=== PATIENT | female | born 2000 | race Caucasian/White ===

== ENCOUNTER → 2020-03-06 | Outpatient (CLI) | payer OTHER ==
[2020-03-07 10:14] LABS: URINE PROTEIN 8.2 mg/dL (<12)
[2020-03-07 10:19] LABS: 24 HOUR URINE PROTEIN RESULT 113 mg/day (42-225)
== END ==
LOC: OD 16:46
PROVIDERS: ATTEND Advanced Practice Midwife
DX: O13.9 Gestational [pregnancy-induced] hypertension without significant proteinuria, unspecified trimester (principal)
CPT/HCPCS: 84156

== ENCOUNTER 2020-10-27 09:45 | Outpatient (CLI) | payer OTHER ==
[2020-10-27 10:47] LABS: APPEARANCE,URINE SLIGHTLY-CLOUDY; BILIRUBIN,URINE NEGATIVE (NEGATIVE); COLOR,URINE YELLOW; GLUCOSE, URINE NEGATIVE (NEGATIVE); KETONES,URINE NEGATIVE (NEGATIVE); LEUKOCYTE ESTERASE,URINE NEGATIVE (NEGATIVE); NITRITE,URINE NEGATIVE (NEGATIVE); PROTEIN,URINE NEGATIVE (NEGATIVE); URINE SPECIFIC GRAVITY 1.018; UROBILINOGEN,URINE NEGATIVE mg/dL (<2.0)
--- NOTE | 2020-10-27 11:52 | Non Stress Test Report ---
Non Stress Test Datetime Report Generated by CPN: 10/27/2020 11:52 DEMOGRAPHIC Test Number: 2 EGA NST: 41.0 INDICATION Indication for Study (NST) Other: R/O labor Indication for Study (NST) Other: R/O labor VITAL SIGNS Temperature - NST: 97.7 Pulse - NST: 93 RESP - NST: 18 NBPSYS NST: 116 NBPDIA NST: 76 MONITORING Monitor Explained: Monitor Explained; Test Explained; Patient Verbalized Understanding Monitor Explained: Monitor Explained; Test Explained; Patient Verbalized Understanding Time on Monitor: 10/27/2020 10:15 Time on Monitor: 10/27/2020 10:15 Time off Monitor: 10/27/2020 11:14 Time off Monitor: 10/27/2020 11:14 NST Duration: 59 NST Duration: 59 NST INTERVENTIONS NST Interventions: PO Hydration NST Interventions: PO Hydration Physician Notified NST: A. Martínez, CNM BABY A: [id number] BABY A Movement : Present Contraction Frequency : 4-9 FHR Baseline : 125 Accelerations : 15X15 Decelerations : None Variability : Moderate 6-25bpm Variability : Moderate 6-25bpm NST Review: Meets Criteria for Reactive NST NST Review and Verified By : Tutu Gallardo RN NSKeagan Results: Reactive NST REPORT Report Trigger: Send Report
[2020-10-27 14:07] LABS: URINE AMPHETAMINES SCREEN NEGATIVE; URINE BARBITURATES SCREEN NEGATIVE; URINE BENZODIAZEPINES SCREEN NEGATIVE; URINE COCAINE SCREEN NEGATIVE; URINE MARIJUANA (THC) SCREEN NEGATIVE; URINE METHADONE SCREEN NEGATIVE; URINE PHENCYCLIDINE SCREEN NEGATIVE
== END 2020-10-27 11:41 | disposition home or self-care (01) ==
LOC: LC 09:45
PROVIDERS: ATTEND Obstetrics & Gynecology Gynecology
DX: O47.1 False labor at or after 37 completed weeks of gestation (principal); O48.0 Post-term pregnancy; Z3A.41 41 weeks gestation of pregnancy
CPT/HCPCS: 59025; 80307; 81005

== ENCOUNTER 2020-10-27 15:22 | Outpatient (CLI) | payer OTHER | END 2020-10-27 16:59 | disposition home or self-care (01) | LOC: LC 15:22 | PROVIDERS: ATTEND Obstetrics & Gynecology Gynecology | DX: O47.1 False labor at or after 37 completed weeks of gestation (principal); O48.0 Post-term pregnancy; Z3A.41 41 weeks gestation of pregnancy | CPT/HCPCS: 59025 ==

== ENCOUNTER 2020-10-28 06:48 | Outpatient (CLI) | payer OTHER ==
--- NOTE | 2020-10-28 06:52 | Non Stress Test Report ---
Non Stress Test Datetime Report Generated by CPN: 10/28/2020 06:52 DEMOGRAPHIC EGA NST: 41.0 INDICATION Indication for Study (NST) Other: R/O labor VITAL SIGNS Temperature - NST: 98.4 Pulse - NST: 92 RESP - NST: 18 NBPSYS NST: 124 NBPDIA NST: 84 MONITORING Monitor Explained: Monitor Explained; Test Explained; Patient Verbalized Understanding Time on Monitor: 10/27/2020 15:39 Time off Monitor: 10/27/2020 16:15 NST Duration: 36 NST INTERVENTIONS NST Interventions: None BABY A: [id number] BABY A Movement : Present Contraction Frequency : 5-7 FHR Baseline : 115 Accelerations : 15X15 Decelerations : None Variability : Moderate 6-25bpm NST Review: Meets Criteria for Reactive NST NST Review and Verified By : Aryan Parikh RN NST Results: Reactive NST REPORT Report Trigger: Send Report
[2020-10-28 07:38] LABS: APPEARANCE,URINE SLIGHTLY-CLOUDY; BILIRUBIN,URINE NEGATIVE (NEGATIVE); COLOR,URINE YELLOW; GLUCOSE, URINE NEGATIVE (NEGATIVE); KETONES,URINE NEGATIVE (NEGATIVE); LEUKOCYTE ESTERASE,URINE NEGATIVE (NEGATIVE); NITRITE,URINE NEGATIVE (NEGATIVE); PROTEIN,URINE NEGATIVE (NEGATIVE); URINE SPECIFIC GRAVITY 1.011; UROBILINOGEN,URINE NEGATIVE mg/dL (<2.0)
[2020-10-28 07:59] LABS: URINE AMPHETAMINES SCREEN NEGATIVE; URINE BARBITURATES SCREEN NEGATIVE; URINE BENZODIAZEPINES SCREEN NEGATIVE; URINE COCAINE SCREEN NEGATIVE; URINE MARIJUANA (THC) SCREEN NEGATIVE; URINE METHADONE SCREEN NEGATIVE; URINE PHENCYCLIDINE SCREEN NEGATIVE
[2020-10-28] MEDS ORDERED: RINGERS SOLUTION,LACTATED 1,000 ML IV PRN (08:31)
[2020-10-28] MEDS ORDERED: PROMETHAZINE HCL INJ 25 MG/1 ML VIAL IV ONE (08:32)
[2020-10-28] MEDS ORDERED: NALBUPHINE HCL INJ 10 MG/1 ML AMPULE INJ ONE (08:32)
[2020-10-28] MEDS ORDERED: NALBUPHINE HCL INJ 10 MG/1 ML AMPULE ONE (08:35)
[2020-10-28] MEDS ORDERED: PROMETHAZINE HCL INJ 25 MG/1 ML VIAL ONE (08:35)
--- NOTE | 2020-10-28 13:37 | Non Stress Test Report ---
Non Stress Test Datetime Report Generated by CPN: 10/28/2020 13:37 DEMOGRAPHIC Test Number: 3 EGA NST: 41.1 INDICATION Indication for Study (NST) Other: 41 wks not in labor VITAL SIGNS Temperature - NST: 98.4 Pulse - NST: 87 RESP - NST: 18 NBPSYS NST: 116 NBPDIA NST: 74 MONITORING Monitor Explained: Monitor Explained; Test Explained; Patient Verbalized Understanding Time on Monitor: 10/28/2020 10:50 Time off Monitor: 10/28/2020 11:30 NST Duration: 40 NST INTERVENTIONS NST Interventions: PO Hydration Physician Notified NST: Dr Joaquin BABY A Movement : Present Contraction Frequency : 5-8 FHR Baseline : 110 Accelerations : 15X15 Decelerations : None Variability : Moderate 6-25bpm NST Review: Meets Criteria for Reactive NST NST Review and Verified By : Tutu Gallardo RN NSKeagan Results: Reactive NST REPORT Report Trigger: Send Report
== END 2020-10-28 13:25 | disposition home or self-care (01) ==
LOC: LC 06:48
PROVIDERS: ATTEND Obstetrics & Gynecology
DX: O48.0 Post-term pregnancy (principal); Z3A.41 41 weeks gestation of pregnancy
CPT/HCPCS: 59025; 81005; 80307; J2300; J2550

== ENCOUNTER 2020-10-29 14:28 | Inpatient (IN) | payer OTHER ==
[2020-10-29 15:17] LABS: APPEARANCE,URINE SLIGHTLY-CLOUDY; BILIRUBIN,URINE NEGATIVE (NEGATIVE); COLOR,URINE YELLOW; GLUCOSE, URINE NEGATIVE (NEGATIVE); KETONES,URINE 80 mg/dL (NEGATIVE); LEUKOCYTE ESTERASE,URINE TRACE (NEGATIVE); NITRITE,URINE NEGATIVE (NEGATIVE); PROTEIN,URINE 30 mg/dL (NEGATIVE); UROBILINOGEN,URINE NEGATIVE mg/dL (<2.0)
[2020-10-29 15:37] LABS: URINE AMPHETAMINES SCREEN NEGATIVE; URINE BARBITURATES SCREEN NEGATIVE; URINE BENZODIAZEPINES SCREEN NEGATIVE; URINE COCAINE SCREEN NEGATIVE; URINE MARIJUANA (THC) SCREEN NEGATIVE; URINE METHADONE SCREEN NEGATIVE; URINE PHENCYCLIDINE SCREEN NEGATIVE
[2020-10-29] MEDS ORDERED: RINGERS SOLUTION,LACTATED 1,000 ML IV PRN (18:05)
[2020-10-29] MEDS ORDERED: RINGERS SOLUTION,LACTATED 1,000 ML IV ONE (18:05)
[2020-10-29 19:05] LABS: ABSOLUTE LYMPHOCYTES (AUTO) 1.4 10^3/uL (0.5-4.7); ABSOLUTE MONOCYTES (AUTO) 0.8 10^3/uL (0.1-1.4); ABSOLUTE NEUT (AUTO) 8.8 10^3/uL (1.7-8.2); BASOPHILS % (AUTO) 0.1 % (0-2); EOSINOPHILS % (AUTO) 0.2 % (0-6); HEMATOCRIT 34.3 % (36.0-47.0); HEMOGLOBIN 11.7 g/dL (12.0-15.5); MEAN CORPUSCULAR HEMOGLOBIN 30.7 pg (27.0-33.4); MEAN CORPUSCULAR HGB CONC 34.1 g/dL (32.0-36.0); MEAN CORPUSCULAR VOLUME 90 fl (80-97); MONOCYTES % (AUTO) 7.6 % (3-13); PLATELET COUNT 220 10^3/uL (150-450); RED BLOOD COUNT 3.81 10^6/uL (3.72-5.28); RED CELL DISTRIBUTION WIDTH 15.1 % (11.5-14.0); SEGMENTED NEUTROPHILS % (AUTO) 79.1 % (42-78); TOTAL CELLS COUNTED % (AUTO) 100 %; WHITE BLOOD COUNT 11.1 10^3/uL (4.0-10.5)
[2020-10-29] MEDS ORDERED: EPHEDRINE SULFATE INJ 50 MG/1 ML AMPULE ONE (19:34)
[2020-10-29] MEDS ORDERED: ROPIVACAINE HCL 0.2% INJ/PF (2 MG/ML) 20 ML SDV ONE (19:34)
[2020-10-29] MEDS ORDERED: FENTANYL/BUPIVACAINE/NS/PF 300 MCG/150 ML RTUINJ EPI ONE (19:34)
[2020-10-29] MEDS ORDERED: OXYTOCIN 10 UNIT/ML VIAL ONE (22:51)
[2020-10-29] MEDS ORDERED: LIDOCAINE 1% INJ-PF (10 MG/ML) 30 ML SDV ONE (22:51)
[2020-10-29] MEDS ORDERED: MISOPROSTOL 0.2 MG TABLET ONE (22:51)
[2020-10-29] MEDS ORDERED: OXYTOCIN/0.9 % SODIUM CHLORIDE 30 UNIT/500 ML RTUINJ ONE (22:51)
[2020-10-29] MEDS ORDERED: OXYTOCIN/0.9 % SODIUM CHLORIDE 30 UNIT/500 ML RTUINJ IV PRN (22:55)
[2020-10-30] MEDS ORDERED: MAGNESIUM HYDROXIDE SUSP 30 ML UDCUP PO PRN (06:31)
[2020-10-30] MEDS ORDERED: ZOLPIDEM TARTRATE 5 MG TABLET PO PRN (06:31)
[2020-10-30] MEDS ORDERED: PSEUDOEPHEDRINE HCL 30 MG TABLET PO PRN (06:31)
[2020-10-30] MEDS ORDERED: PROMETHAZINE HCL INJ 25 MG/1 ML VIAL IV PRN (06:31)
[2020-10-30] MEDS ORDERED: ACETAMINOPHEN WITH CODEINE #3 TABLET PO PRN (06:31)
[2020-10-30] MEDS ORDERED: DIPH/PERTUSS(ACELL)/TETANUS VAC/PF 0.5 ML SYR (>=10YO) IM PRN (06:31)
[2020-10-30] MEDS ORDERED: GLYCERIN/WITCH HAZEL LEAF 1 EACH MED..WIPE TP PRN (06:31)
[2020-10-30] MEDS ORDERED: DIPHENHYDRAMINE HCL 25 MG CAPSULE PO PRN (06:31)
[2020-10-30] MEDS ORDERED: NA PHOS,M-B/NA PHOS,DI-BA (ADULT) 133 ML ENEMA PR PRN (06:31)
[2020-10-30] MEDS ORDERED: BENZOCAINE/MENTHOL AEROSOL SPRAY 56 ML TOP PRN (06:31)
[2020-10-30] MEDS ORDERED: DIBUCAINE 1% OINTMENT 28 GM TP PRN (06:31)
[2020-10-30] MEDS ORDERED: OXYTOCIN/0.9 % SODIUM CHLORIDE 30 UNIT/500 ML RTUINJ IV PRN (06:31)
[2020-10-30] MEDS ORDERED: PROMETHAZINE HCL 25 MG TABLET PO PRN (06:31)
[2020-10-30] MEDS ORDERED: MEASLES,MUMPS&RUBELLA VACC/PF 0.5 ML VIAL SUBCUT PRN (06:31)
[2020-10-30] MEDS ORDERED: ACETAMINOPHEN 325 MG TABLET PO PRN (06:31)
[2020-10-30] MEDS ORDERED: ACETAMINOPHEN 650 MG SUPP.RECT PR PRN (06:31)
[2020-10-30] MEDS ORDERED: PROMETHAZINE HCL 25 MG SUPP.RECT PR PRN (06:31)
--- NOTE | 2020-10-30 06:38 | Admission Physical ---
Datetime Report Generated by CPN: 10/30/2020 06:38 CURRENT ADMISSION Hx Assessment: The History has been Reviewed and is Current Chief Complaint: Uterine Contractions Chief Complaint Other: Contractions worsening and getting closer over last 24-48 hours Admit Impression : Term, Intrauterine ; Active Labor; Admit Plan: Admit to Unit; Initiate Protocol ALLERGIES Medication Allergies: No Medication Allergies: No Known Allergies (10/29/2020) Latex: No Latex Allergies OBSTETRICAL HISTORY EDC: 10/20/2020 00:00 : 3 Para: 1 Term: 1 : 0 SAB: 1 IAB: 0 Ectopic: 0 Livin Cesareans: 1 VBACs: 0 Multiple Births: 0 Gestational Diabetes: No Rh Sensitization: No Incompetent Cervix: No VIKA: No Infertility: No ART Treatment: No Uterine Anomaly: No IUGR: No Hx Previous C/S: Yes Macrosomia: No Hx Loss/Stillborn: No PIH: No Hx : No Placenta Previa/Abruption: No Depression/PP Depression: No PTL/PROM: No Post Hemorrhage: No Current Procedures: Ultrasound; NST Obstetrical History Comments: G1- SAB @ 7weeks 02/16/2018 G2- Primary C/S d/t preeclampsia and breech @37 weeks, male G3- Current, desires TOLAC SEE RECORDS Alcohol: No Marijuana : No Cocaine: No Other Illicit Drugs: No Cigarettes: Never Smoker. [id number] MEDICAL HISTORY Diabetes: No Blood Transfusion: No Pulmonary Disease (Asthma, TB): No Breast Disease: No Hypertension: No Project Management Analyst Surgery: No Heart Disease: No Hosp/Surgery: Yes Autoimmune Disorder: No Anesthetic Complications: No Kidney Disease: No Abnormal Pap Smear: No Neuro/Epilepsy: No Psychiatric Disorders: No Other Medical Diseases: No Hepatitis/Liver Disease: No Significant Family History: No Varicosities/Phlebitis: No Trauma/Violence : No Thyroid Dysfunction: No Medical History Comments: hx of hospital for last INFECTIOUS HISTORY Gonorrhea: No Genital Herpes: No Chlamydia: No Tuberculosis: No Syphilis: No Hepatitis: No HIV/AIDS Exposure: No Rash or Viral Illness: No HPV: No PHYSICAL EXAM General: Normal HEENT: Normal Neurologic: Normal Thyroid: Normal Heart: Normal Lungs: Normal Breast: Normal Back: Normal Abdomen: Normal Genitourinary Exam: Normal Extremities: Normal DTRs: Normal Pelvic Type: Adequate Vital Signs: Reviewed VAGINAL EXAM Dilatation: 2 Effacement: 80 Station: -2 Contraction Comments: regular MEMBRANES Pooling: Positive Membranes: Ruptured Amniotic Fluid Color: Clear FETUS A EGA: 41.3 Monitoring: External US FHR- Baseline: 135 Variability: Moderate 6-25bpm Accelerations: 15X15 Decelerations: None FHR Category: Category I Presentation: Vertex Admit Comment: at 41.3 wks EGA in active labor. History of prior CS for breech but desires TOLAC -Admit to LDR -NPO and IVFS: LR at 125 cc/hr after 1 liter of LR bolus -CEFM and toco -GBS negative -Desires epidural -Plan for PLANS FOR LABOR AND DELIVERY Labor and Delivery: None Pain Management: Epidural Feeding Preference: Breast Benefit of Breast Feed Discussed: Yes Circumcision: Yes INFORMED CONSENT Informed Consent Obtained: Vaginal Delivery; Section Delivery; Vaginal After ; Risks, Benefits and Alternatives Discussed Signature: with User ID: Petros : with User ID: [email or web address]
[2020-10-30] MEDS ORDERED: BUTALB/ACETAMINOPHEN/CAFFEINE 1 TAB EACH PO ONE (07:18)
[2020-10-30] MEDS ORDERED: BUTALB/ACETAMINOPHEN/CAFFEINE 1 TAB EACH ONE (07:27)
[2020-10-30] MEDS: IBUPROFEN 800 MG TABLET PO SCH ×3 (09:36→22:01)
[2020-10-30] MEDS: FAMOTIDINE 20 MG TABLET PO SCH ×2 (10:04→22:00)
[2020-10-30] MEDS: FERROUS SULFATE 325 MG TABLET PO SCH ×2 (10:04→17:23)
[2020-10-30] MEDS: PRENATAL VITAMIN W DHA CAPSULE PO SCH (10:04)
[2020-10-30] MEDS: SENNOSIDES/DOCUSATE 8.6-50 MG 1 EACH TABLET PO SCH (10:04)
[2020-10-30] MEDS: DOCUSATE SODIUM 100 MG CAPSULE PO SCH ×2 (10:04→17:23)
[2020-10-30] MEDS: ACETAMINOPHEN WITH CODEINE #3 TABLET PO PRN (15:20)
[2020-10-31] MEDS: IBUPROFEN 800 MG TABLET PO SCH ×3 (05:45→21:26)
[2020-10-31 07:15] LABS: HEMATOCRIT 29.1 % (36.0-47.0); HEMOGLOBIN 9.9 g/dL (12.0-15.5); MEAN CORPUSCULAR HEMOGLOBIN 31.1 pg (27.0-33.4); MEAN CORPUSCULAR HGB CONC 34.1 g/dL (32.0-36.0); MEAN CORPUSCULAR VOLUME 91 fl (80-97); PLATELET COUNT 181 10^3/uL (150-450); RED CELL DISTRIBUTION WIDTH 15.3 % (11.5-14.0); WHITE BLOOD COUNT 10.6 10^3/uL (4.0-10.5)
[2020-10-31] MEDS: PRENATAL VITAMIN W DHA CAPSULE PO SCH (11:11)
[2020-10-31] MEDS: FAMOTIDINE 20 MG TABLET PO SCH ×2 (11:11→21:27)
[2020-10-31] MEDS: ACETAMINOPHEN WITH CODEINE #3 TABLET PO PRN (11:11)
[2020-10-31] MEDS: SENNOSIDES/DOCUSATE 8.6-50 MG 1 EACH TABLET PO SCH (11:11)
[2020-10-31] MEDS: FERROUS SULFATE 325 MG TABLET PO SCH ×2 (11:11→17:42)
[2020-10-31] MEDS: DOCUSATE SODIUM 100 MG CAPSULE PO SCH ×2 (11:11→17:42)
[2020-10-31] MEDS ORDERED: BUTALB/ACETAMINOPHEN/CAFFEINE 1 TAB EACH PO PRN (15:12)
--- NOTE | 2020-10-31 15:54 | PDOC PROGRESS REPORT ---
Subjective-OB Progress Note for:: 10/31/20 Subjective: reports bleeding slowing, pain controlled with current meds. denies needs Physical Exam (OB) Vital Signs: Temp Pulse Resp BP Pulse Ox 98.2 F 98 17 123/79 100 10/31/20 08:33 10/31/20 08:10 10/31/20 08:10 10/31/20 08:10 10/31/20 08:10 Intake & Output 10/30/20 10/31/20 11/01/20 06:59 06:59 06:59 Intake Total 640 Balance 640 Weight 89.9 kg - Maternal Morbidity 59. Maternal Morbidity (serious complications experinced by the mother associated with labor and delivery: None of the above - Abdomen Description: Tender, Soft Hernia Present: No Fundal Description: Firm, Midline Fundal Height: u/u - u/2 - Abdominal Distension: No distension - Extremities Lower extremities: Luly's sign - neg Calf: Normal, Nontender Objective-Diagnostic Laboratory: 10/31/20 06:27 10/31/20 06:27 WBC 10.6 H RBC 3.20 L Hgb 9.9 L Hct 29.1 L MCV 91 MCH 31.1 MCHC 34.1 RDW 15.3 H Plt Count 181 Assessment and Plan(PN) - Assessment and Plan (1) Obstetrical laceration, third degree Is this a current diagnosis for this admission?: Yes (2) (vaginal after ) Is this a current diagnosis for this admission?: Yes - Time Spent with Patient Time with patient: Less than 15 minutes - Disposition Anticipated Discharge Disposition: Home, Self Care Anticipated Discharge Timeframe: within 24 hours
[2020-11-01] MEDS: IBUPROFEN 800 MG TABLET PO SCH (06:52)
[2020-11-01] MEDS: PRENATAL VITAMIN W DHA CAPSULE PO SCH (09:12)
[2020-11-01] MEDS: FAMOTIDINE 20 MG TABLET PO SCH (09:13)
[2020-11-01] MEDS: FERROUS SULFATE 325 MG TABLET PO SCH (09:13)
[2020-11-01] MEDS: DOCUSATE SODIUM 100 MG CAPSULE PO SCH (09:13)
[2020-11-01] MEDS: SENNOSIDES/DOCUSATE 8.6-50 MG 1 EACH TABLET PO SCH (09:13)
--- NOTE | 2020-11-01 11:52 | PDOC DISCHARGE SUMMARY ---
Impression - Admit/DC Date/PCP Admission Date/Primary Care Provider: 10/29/20 18:03 LIANNA DALE MD Discharge Date: 11/01/20 - Discharge Diagnosis (1) Obstetrical laceration, third degree Is this a current diagnosis for this admission?: Yes (2) (vaginal after ) Is this a current diagnosis for this admission?: Yes - Additional Information Discharge Diet: Regular Discharge Activity: Balance Activity w/Rest, Pelvic Rest Referrals: LIANNA DALE MD [Primary Care Provider] - Prescriptions: Docusate Sodium [Colace 100 mg Capsule] 100 mg PO TID #90 capsule Butalbit/Acetamin/Caff/Codeine [Fioricet-Cod 31-461-41-30 Cap] 1 cap PO Q6 PRN 10 Days #40 cap PRN Reason: Ibuprofen [Motrin 800 mg Tablet] 800 mg PO Q8HP PRN #90 tablet PRN Reason: Home Medications: Butalbit/Acetamin/Caff/Codeine [Fioricet-Cod 42-198-27-30 Cap] 1 cap PO Q6 PRN 10 Days #40 cap 11/01/20 Docusate Sodium [Colace 100 mg Capsule] 100 mg PO TID #90 capsule 11/01/20 Ibuprofen [Motrin 800 mg Tablet] 800 mg PO Q8HP PRN #90 tablet 11/01/20 Hospital Course 59. Maternal Morbidity (serious complications experinced by the mother associated with labor and delivery: None of the above Results Laboratory Results: WBC 10.6 10^3/uL (4.0-10.5) H 10/31/20 06:27 RBC 3.20 10^6/uL (3.72-5.28) L 10/31/20 06:27 Hgb 9.9 g/dL (12.0-15.5) L 10/31/20 06:27 Hct 29.1 % (36.0-47.0) L 10/31/20 06:27 MCV 91 fl (80-97) 10/31/20 06:27 MCH 31.1 pg (27.0-33.4) 10/31/20 06:27 MCHC 34.1 g/dL (32.0-36.0) 10/31/20 06:27 RDW 15.3 % (11.5-14.0) H 10/31/20 06:27 Plt Count 181 10^3/uL (150-450) 10/31/20 06:27 Lymph % (Auto) 13.0 % (13-45) 10/29/20 18:51 [place] % (Auto) 7.6 % (3-13) 10/29/20 18:51 Eos % (Auto) 0.2 % (0-6) 10/29/20 18:51 Baso % (Auto) 0.1 % (0-2) 10/29/20 18:51 Absolute Neuts (auto) 8.8 10^3/uL (1.7-8.2) H 10/29/20 18:51 Absolute Lymphs (auto) 1.4 10^3/uL (0.5-4.7) 10/29/20 18:51 Absolute Monos (auto) 0.8 10^3/uL (0.1-1.4) 10/29/20 18:51 Absolute Eos (auto) 0.0 10^3/uL (0.0-0.6) 10/29/20 18:51 Absolute Basos (auto) 0.0 10^3/uL (0.0-0.2) 10/29/20 18:51 Seg Neutrophils % 79.1 % (42-78) H 10/29/20 18:51 Urine Color YELLOW 10/29/20 14:41 Urine Appearance SLIGHTLY-CLOUDY 10/29/20 14:41 Urine pH 6.0 (5.0-9.0) 10/29/20 14:41 Ur Specific [place] 1.020 10/29/20 14:41 Urine Protein 30 mg/dL (NEGATIVE) H 10/29/20 14:41 Urine Glucose (UA) NEGATIVE mg/dL (NEGATIVE) 10/29/20 14:41 Urine Ketones 80 mg/dL (NEGATIVE) H 10/29/20 14:41 Urine Blood SMALL (NEGATIVE) H 10/29/20 14:41 Urine Nitrite NEGATIVE (NEGATIVE) 10/29/20 14:41 Urine Bilirubin NEGATIVE (NEGATIVE) 10/29/20 14:41 Urine Urobilinogen NEGATIVE mg/dL (<2.0) 10/29/20 14:41 Ur Leukocyte Esterase TRACE (NEGATIVE) H 10/29/20 14:41 Urine Ascorbic Acid NEGATIVE (NEGATIVE) 10/29/20 14:41 Urine Opiates Screen NEGATIVE 10/29/20 14:41 Urine Methadone Screen NEGATIVE 10/29/20 14:41 Ur Barbiturates Screen NEGATIVE 10/29/20 14:41 Ur Phencyclidine Scrn NEGATIVE 10/29/20 14:41 Ur Amphetamines Screen NEGATIVE 10/29/20 14:41 U Benzodiazepines Scrn NEGATIVE 10/29/20 14:41 Urine Cocaine Screen NEGATIVE 10/29/20 14:41 U Marijuana (THC) Screen NEGATIVE 10/29/20 14:41 RPR NONREACTIVE (NONREACTIVE) 10/29/20 18:51 Blood Type A POSITIVE 10/29/20 18:51 Antibody Screen NEGATIVE 10/29/20 18:51 Plan Plan of Treatment: follow up in one week at [facility] for incision check
--- NOTE | 2020-11-01 11:54 | Progress Note ---
Provider Note Provider Note: spinal LINDO persists, she is being sent home with fioricet with codeine. CNM discussed with CLAUDIA Shabazz and he does not advise a second blood patch at this time. pt has been instructed to push po fluids, consume caffeine and expect the headache to take up to a week before resolution.
[2020-11-01 15:00] VITALS: BP 130/76
--- NOTE | 2020-11-03 16:00 | Delivery Summary ---
Del Sum A-C Datetime Report Generated by CPN: 11/03/2020 16:00 DELIVERY PERSONNEL DELIVERY PERSONNEL: [id number] Delivery Doctor:: Myra Rodriguez MD Labor and Delivery Nurse:: Joanne Parmar RNsemiconductor development technician Nurse:: HYACINTH [place] Metal Engraver/JAVA SCALA DEVELOPER: Ofe Ross, ST MATERNAL INFORMATION Delivery Anesthesia: Epidural Medications After Delivery: Pitocin 30 Units in 500ml NS/D5W Delivery QBL: 100 Maternal Complications: Other Complication Details: Provider Comments: Called to patients room as she was complete and +3 station. Patient pushed through a couple of contractions and delivered a viable male in vertex presentation. Loose body cord noted but delivered through. THe shoulder and rest of the body came easily after the head. Cord clamping delayed for 30 secconds as infant was vigorous. placed skin to skin. Both Mother and stable LABOR SUMMARY EDC: 10/20/2020 00:00 No. Babies in Womb: 1 Attempted: Yes Labor Anesthesia: Epidural LABOR INFORMATION Reason for Induction: Not Applicable Onset of Labor: 10/29/2020 22:42 Complete Dilatation: 10/30/2020 04:06 Oxytocin: Augmentation Group B Beta Strep: negative Antibiotics # of Doses: 0 Name of Antibiotic Given: n/a Steroids Given: None Reason Steroids Not Administered: Not Applicable MEMBRANES Membranes Rupture Method: Spontaneous Rupture of Membranes: 10/29/2020 22:43 Length of Rupture (hr): 7.38 Amniotic Fluid Color: Clear Amniotic Fluid Amount: Moderate Amniotic Fluid Odor: Normal STAGES OF LABOR Stage 1 hr: 5 Stage 1 min: 24 Stage 2 hr: 2 Stage 2 min: 0 Stage 3 hr: 0 Stage 3 min: 5 Total Time in Labor hr: 7 Total Time in Labor min: 29 VAGINAL DELIVERY Episiotomy: None Laceration #1: Perineal Laceration Extension #1: Third Degree, IIIa (Less than 50 percent ext anal sphincter thickness torn) Laceration Repair: Yes Laceration Repair Note: Repaired with 2-0 chromic in a layered closure Sponge Count Correct: Yes Sharps Count Correct: Yes CSECTION DELIVERY Primary Indication: N/A Secondary Indication: N/A CSection Incidence: N/A Labor: N/A Elective: N/A CSection Incision: N/A BABY A INFORMATION Delivery Date/Time: 10/30/2020 06:06 Method of Delivery: Vaginal Nurse Controlled Delivery: No Born in Route : No : Successful Forceps: N/A Vacuum Extraction: N/A Shoulder Dystocia : No PRESENTATION/POSITION BABY A Presentation: Cephalic Presentation: Cephalic Cephalic Presentation: Vertex Vertex Position: Left Occipital Anterior Breech Presentation: N/A PLACENTA INFORMATION BABY A Placenta Delivery Time : 10/30/2020 06:11 Placenta Method of Delivery: Spontaneous Placenta Method of Delivery: Spontaneous Placenta Status: Delivered SCORES BABY A Heart Rate 1 min: >100 bpm Resp Effort 1 min: Good Cry Reflex Irritability 1 min: Cough or Sneeze or Pulls Away Muscle Tone 1 min: Active Motion Color 1 min: Blue/Pale Resuscitation Effort 1 min: Tactile Stimulation SCORE 1 MIN: 8 Heart Rate 5 min: >100 bpm Resp Effort 5 min: Good Cry Reflex Irritability 5 min: Cough or Sneeze or Pulls Away Muscle Tone 5 min: Active Motion Color 5 min: Body [place], Extremities Blue SCORE 5 MIN: 9 INFANT INFORMATION BABY A Gestational Age at Delivery: 41.3 Gestational Status: Late Term- 41- 41.6 Weeks Infant Outcome : Liveborn Condition : Stable Infant Sex: Male IDENTIFICATION BABY A Verification Date/Time: 10/30/2020 06:15 ID Band Number: [id number] Mother's Name Verified: Yes RN Verifying : K Devang, RN Additional Verifying Personnel: S Jack, RN WEIGHT/LENGTH BABY A Birthweight (gm): 3330 Infant Weight (lb): 7 Infant Weight (oz): 5 Infant Length (in): 20.00 Infant Length (cm): 50.80 CORD INFORMATION BABY A No. Cord Vessels: 3 Nuchal Cord : N/A Cord Blood Taken: Yes-For Storage (Mom's Blood type +) Suction: None ASSESSMENT BABY A Infant Complications: None Physical Findings at Delivery: Within Normal Limits Respirations: Appears Normal Skin to Skin: Yes Skin to Skin: Yes Senior Marketing Coordinator/ALS Called : No Care By: E Jilek RN Transferred To: Remains with Mother BABY B INFORMATION : N/A SIGNATURES Signature: with User ID: Petros : with User ID: [email or web address]
== END 2020-11-01 15:55 | disposition home or self-care (01) | DRG 768 ==
LOC: LC 14:28 → LR 18:03 → 2S 10-30 09:50
PROVIDERS: ADMIT Obstetrics & Gynecology; ATTEND Obstetrics & Gynecology
PROC: 10E0XZZ Delivery of Products of Conception, External Approach (ICD-10-PCS; principal; 2020-10-29)
PROC: 0DQR0ZZ Repair Anal Sphincter, Open Approach (ICD-10-PCS; 2020-10-29)
DX: O48.0 Post-term pregnancy (principal); Z37.0 Single live birth; O70.21 Third degree perineal laceration during delivery, IIIa; O69.82X0 Labor and delivery complicated by other cord entanglement, without compression, not applicable or unspecified; Z20.828 Contact with and (suspected) exposure to other viral communicable diseases; Z3A.41 41 weeks gestation of pregnancy
CPT/HCPCS: 1967; 36415; 80307; 81005; 85025; 85027; 86592; 86850; 86900; 86901; 94760; J2590; J2795; J3010; J3490

== ENCOUNTER 2020-12-04 16:26 | Emergency (ER) | payer OTHER ==
--- NOTE | 2020-12-04 17:29 | ER Document Report ---
ED General - General Chief Complaint: Hip Pain Stated Complaint: HIP PAIN Primary Care Provider: LIANNA DALE MD [Primary Care Provider] - Follow up as needed - HPI Notes: Chief Complaint: left hip pain Historian: History obtained from patient HPI: This is a 20yo female c/o left posterior buttocks pain that has been ongoing for multiple years that recently worsened. says it began while hiking with a large pack in the [employer]. says it worsened the past couple days to where she has alot of pain w/ bending over. pain radiates from buttocks to low back, sometimes it will radiate to the bottom of her buttocks. no saddle anesthesia, incont, or BLE weakness/numbness. pt is breast feeding. ROS: Constitutional: no fevers. HEENT: no LINDO, sore throat, or vision changes. CV: no chest pain or palpitations. Resp: no cough or SOB. GI: no abdominal pain, or n/v/d. : no dysuria, hematuria, or incont. MSK: left buttocks pain. Skin: no rashes or itching. Neuro: no seizures, weakness, numbness, or confusion. Hematological: no ecchymosis or easy bleeding. Endocrine: no polyuria/polydipsia, no heat/cold intolerance. Psych: no SI/HI, AH/VH or memory loss. PMHx: Reviewed and agree as charted by RN. PSHx: Reviewed and agree as charted by RN. SOCHx: Reviewed and agree as charted by RN. FHX: No significant familial comorbid conditions directly related to patient complaint Current Medications: Reviewed and agree with the patient medications as charted by the RN. Allergies: Reviewed and agree with the listed allergies as charted by the RN Physical Exam: Vitals: Reviewed in chart as documented by RN. General: Alert and in NAD. Head: Normocephalic; atraumatic Eyes: PERRLA, Conjunctivae clear sclerae non-icteric bilat ENT: no soft palate swelling or uvular deviation Neck: trachea midline, no unilateral swelling/tenderness/lymphadenopathy CV: RRR, no M/R/G; symmetric distal pulses Resp: respirations even and unlabored, CTA bilat. GI: abd soft and nondistended. NTTP. normal BS. no masses/HSM. no CVAT bilat MSK: tender to posterior left buttocks. no midline lumbar tenderness/deformity/swelling. no paraspinous tenderness. SLR pos on left, neg on right. sensation intact to saddle area to ble distally. pedal pulses 2+. cap refill < 3 sec. sensory intact distally. Skin: warm, moist, good turgor. no rash/lesions Neuro: Alert and oriented X 4. following CN 2-12 intact. no unilateral weakness/numbness Psych: No SI/HI or AH/VH. Medical Decision-Making: Medical Decision-making/Differential Diagnosis: Consider various etiologies including but not limited to skin/soft tissue structure injury, MSK injury, strain/sprain, fracture, dislocation, bursitis, tendonitis, contusion, ect Plan- pt wants baseline xr of lumbar spine and hip. this seems to be an acute on chronic issue. she is neurologically intact. likely sciatica, vs strain/sprain This course of action was discussed with the patient and/or family. They were amenable to this, verbalized understanding, and were without further questions. - Related Data Allergies/Adverse Reactions: No Known Allergies Allergy (Verified 12/04/20 17:17) Past Medical History - Social History Smoking Status: Unknown if Ever Smoked Family History: Reviewed & Not Pertinent Psychiatric Medical History: Denies: Hx Depression Physical Exam - Vital signs Vitals: Temp Pulse Resp BP Pulse Ox 98.3 F 81 16 138/95 H 98 12/04/20 16:32 12/04/20 16:32 12/04/20 16:32 12/04/20 16:32 12/04/20 16:32 Course - Re-evaluation Re-evalutation: 12/04/20 19:39 imaging reviewed- no acute findings of L spine or left hip. will empirically treat w/ nsaids, muscle relaxers, and steroids. pcp f/u this week. return factors discused. - Vital Signs Vital signs: Temp Pulse Resp BP Pulse Ox 98.3 F 81 16 138/95 H 98 12/04/20 16:32 12/04/20 16:32 12/04/20 16:32 12/04/20 16:32 12/04/20 16:32 - Laboratory Results Critical Laboratory Results Reviewed: No Critical Results - Radiology Results Critical Radiology Results Reviewed: No Critical Results Discharge - Discharge Clinical Impression: Chronic left hip pain Condition: Stable Disposition: HOME, SELF-CARE Instructions: Sciatica ([facility]) Additional Instructions: Follow all printed instructions. Take medications as prescribed. Follow up with your doctor in 2-3 days for re-check. Return to the ER if your condition worsens. Prescriptions: Prednisone [Deltasone 20 mg Tablet] 3 tab PO DAILY 5 Days #15 tablet Cyclobenzaprine HCl [Flexeril 10 mg Tablet] 10 mg PO TIDP PRN #15 tab PRN Reason: Referrals: LIANNA DALE MD [Primary Care Provider] - Follow up as needed
--- NOTE | 2020-12-04 17:56 | RADIOLOGY REPORT (SQ) ---
EXAM DESCRIPTION: HIP LEFT AP/LATERAL IMAGES COMPLETED DATE/TIME: 12/04/2020 5:46 pm REASON FOR STUDY: atraumatic left hip pain COMPARISON: None. NUMBER OF VIEWS: Two views. TECHNIQUE: AP pelvis and additional frog legview of the left hip. LIMITATIONS: None. FINDINGS: MINERALIZATION: Normal. LEFT HIP: No fracture or dislocation. No worrisome bone lesions. No contour deformity. No joint spa ce narrowing. RIGHT HIP: No fracture or dislocation. No worrisome bone lesions. Limited views. PUBIS AND ISCHIUM: No fracture. PELVIS: No fracture. SACRUM: No fracture or dislocation. No worrisome bone lesions. LOWER LUMBAR SPINE: No fracture or dislocation. No worrisome bone lesions. No significant disc disea se. SOFT TISSUES: No findings. OTHER: No other significant finding. IMPRESSION: NEGATIVE STUDY OF THE LEFT HIP AND PELVIS. NO EXPLANATION FOR PAIN. TECHNICAL DOCUMENTATION: JOB ID: [id number] [employer]- All Rights Reserved Reading location - IP/workstation name: [email or web address]
--- NOTE | 2020-12-04 17:57 | RADIOLOGY REPORT (SQ) ---
EXAM DESCRIPTION: L SPINE 2 VIEWS IMAGES COMPLETED DATE/TIME: 12/04/2020 5:46 pm REASON FOR STUDY: atraumatic left low back pain COMPARISON: None. NUMBER OF VIEWS: Three views TECHNIQUE: AP, lateral, and lateral sacral radiographic images acquired of the lumbar spine. LIMITATIONS: None. FINDINGS: MINERALIZATION: Normal. SEGMENTATION: Normal. No transitional anatomy. ALIGNMENT: Normal. VERTEBRAE: Maintained height. No fracture or worrisome bone lesion. DISCS: Preserved height. No significant osteophytes or end plate irregularity. POSTERIOR ELEMENTS: Pedicles and facets are intact. No pars defect or posterior arch defects. HARDWARE: None in the spine. PARASPINAL SOFT TISSUES: Normal. PELVIS: Intact as visualized. No fractures or worrisome bone lesions. SI joints intact. OTHER: No other significant finding. IMPRESSION: NORMAL 2 VIEW LUMBAR SPINE. TECHNICAL DOCUMENTATION: JOB ID: [id number] [employer]- All Rights Reserved Reading location - IP/workstation name: [email or web address]
[2020-12-04 19:50] VITALS: BP 108/71
== END 2020-12-04 19:51 | disposition home or self-care (01) ==
LOC: ER 16:26
DX: G89.29 Other chronic pain (principal); M25.552 Pain in left hip
CPT/HCPCS: 72100; 99284